=== PATIENT | female | born 1940 | race Caucasian/White ===

== ENCOUNTER 2020-11-20 18:53 | Inpatient (IN) | payer MEDICARE, MEDICAID, SELFPAY ==
[2020-11-20 19:00] VITALS: BMI 29.7
[2020-11-20 19:20] VITALS: BP 142/53; PULSE 83; RESP 24; TEMP 37.2; O2SAT 98
--- NOTE | 2020-11-20 19:44 | ECG_ITS ---
[facility] ED Test Date: 2020-11-20 Pat Name: Beryl Tanner Department: Room: Gender: Female Religion Teacher: : 1940 Requested By: Julio Joyce Order Number: [id number] Reading MD: Michelle Hopson M.D. Measurements Intervals [place] Rate: 75 P: 91 GA: 204 QRS: -54 QRSD: 144 T: 123 QT: 461 QTc: 518 Interpretive Statements SINUS RHYTHM WITH SINUS ARRHYTHMIA MARKED LEFT AXIS DEVIATION [QRS AXIS < -30] LEFT BUNDLE BRANCH BLOCK [120+ ms QRS DURATION, 80+ ms Q/S IN V1/V2, 85+ ms R IN I/aVL/V5/V6] No previous ECG available for comparison Electronically Signed On 11-26-2020 0:32:04 CDT by Michelle Hopson M.D. [id number]
--- NOTE | 2020-11-20 19:44 | XRR_ITS ---
PROCEDURE INFORMATION: Exam: XR Chest Exam date and time: 11/20/2020 7:44 PM Age: 79 years old Clinical indication: Pain; Left-sided; Prior surgery; Surgery type: Open heart, masectomy; Additional info: Cp TECHNIQUE: Imaging protocol: XR of the chest. Views: 1 view. COMPARISON: CR Chest 2 views* [id number] 07/18/2014 1:26 PM FINDINGS: Lungs: Bibasilar atelectasis versus minimal infiltrate. Pleural spaces: Unremarkable. No pleural effusion. No pneumothorax. Heart/Mediastinum: Cardiomegaly. Bones/joints: Sternotomy wires. XR/XR chest 1V portable [id number] IMPRESSION: 1. Cardiomegaly. 2. Bibasilar atelectasis versus minimal infiltrate.
--- NOTE | 2020-11-20 20:06 | ED_ITS ---
HPI - Chest Pain General: Chief Complaint: Chest Pain Stated Complaint: CHEST PAIN Time Seen by Provider: 11/20/20 19:53 History of Present Illness: HPI narrative: The patient is a 79-year-old female with past medical history coronary artery disease with multiple stents and CABG, CHF, diabetes, COPD, left breast cancer with mastectomy. She gets her care in [place] and in [place] with consultants. She has not been here before. She comes to the ER complaining that she was at [facility] and started having left-sided chest pain that was a 10 out of 10. EMS was called and arrived and gave her 3 nitroglycerin and 324 aspirin. She says her pain on ar rival is greatly reduced and a 0-1. 5 minutes later she says it has resolved. She also has a history of bilateral lower extremity amputation she says one was from peripheral arterial disease and the other was from diabetes. MD complaint: chest pain Pertinent past history: coronary artery disease, [employer] and CABG Onset (ago): hour(s) (1) Timing of current episode: constant Prior episodes: Yes Onset: during rest Pain location: left chest Pain radiation: none Severity: moderate Relieving factors: nitroglycerin Exacerbating factors: nothing Associated symptoms: Reports no associated symptoms; Deny abdominal pain, dyspnea or palpitations Review of Systems General: Reports: 10 or more systems reviewed and unremarkable except in HPI and below Const: Denies: fatigue Eyes: Denies: change in vision, blurry vision or eye redness ENMT: Denies: throat pain, swelling of lips/tongue, ear or mastoid pain or nasal congestion Card: Reports: chest pain; Denies: palpitations, irregular heart rhythm, edema, dyspnea on exertion or orthopnea Resp: Denies: dyspnea, productive cough or non-productive cough GI: Denies: abdominal pain, diarrhea or GI cramping : Denies: flank pain, difficulty voiding, urinary frequency or urinary urgency Musc: Denies: neck pain, back pain, extremity pain, joint pain, joint redness, limited range of motion or muscle weakness Skin/Breast: Denies: rash, pruritus, erythema, skin pain or skin tenderness Neuro: Denies: headache(s), numbness in extremities, weakness in extremities, sensory changes, difficulty walking, dizziness, confusion or Slurred speech present Psych: Denies: anxiety or depression Endo: Denies: polyuria All/Imm: Denies: urticaria, throat swelling or tongue swelling Physical Exam Const: COMMON NORMALS: no acute distress, average body habitus, patient oriented x3, no limitations, healthy appearing, alert and well nourished GENERAL APPEARANCE: cooperative, comfortable, well kempt and well developed ORIENTATION/CONSCIOUSNESS: Yes awake, Yes oriented to person, Yes oriented to place and Yes oriented to time HENMT: COMMON NORMALS: normocephalic, external ears normal and Normal external nose present HEAD & SCALP: normal to inspection and normocephalic NOSE: Normal external nose present EXTERNAL EAR: Yes external ears normal MOUTH: Normal oral and palatal mucosa present THROAT: posterior oropharynx normal Eye: COMMON NORMALS: Equal, round and reactive pupils present and EOMs intact bilaterally GENERAL EYE: appearance normal, both eyes and all related structures PUPIL: Yes Equal, round and reactive pupils present Neck/C-Spine: COMMON NORMALS: full ROM, no lymphadenopathy, no meningeal signs and no JVD GENERAL: Yes normal visual inspection Lymph: LYMPHATIC: no lymphadenopathy noted Chest: COMMONS NORMALS: normal inspection of the chest and normal palpation of entire chest wall Resp: COMMON NORMALS: normal respiratory effort, No retractions, No use of accessory muscles, clear to auscultation bilaterally and percussion normal EFFORT & INSPECTION: Yes able to speak in complete sentences AUSCULTATION: clear to auscultation bilaterally PERCUSSION: percussion normal Cardio: COMMON NORMALS: no JVD, regular rate, regular rhythm, S1 normal heart sound present, S2 normal heart sound present and Peripheral pulses 2+ throughout RATE: regular rate RHYTHM: regular rhythm HEART SOUNDS: S1 normal heart sound present and S2 normal heart sound present PERIPHERAL PULSES: Peripheral pulses 2+ throughout GI: COMMON NORMALS: Normal to inspection, nondistended, normoactive bowel sounds present, Soft to palpation, non-tender and no masses INSPECTION: Yes normal to inspection PALPATION: Yes Soft to palpation : COMMON NORMALS: Yes no CVA tenderness BLADDER/KIDNEY EXAM: Yes no CVA tenderness Back/Pelvis: COMMON NORMALS: no CVA tenderness, thoracic and lumbar spine normal to inspection, no thoracic nor lumbar tenderness and thoraco-lumbar ROM normal Extremity: COMMON NORMALS: normal to inspection, full ROM, capillary refill normal, no joint enlargement and no pedal edema NARRATIVE EXTREMITY EXAM: Bilateral lower extremity amputations right side above the knee. Left side below the knee. They appear normal. GENERAL: Yes normal exam except as noted Neuro: COMMON NORMALS: patient oriented x3, CN's II-XII intact bilaterally, moves all extremities, no focal motor deficits, no sensory deficits noted and gait normal SENSORIUM/ORIENTATION: Yes alert, Yes oriented to person, Yes oriented to place and Yes oriented to time MENINGEAL SIGNS: Yes no meningeal signs Psych: COMMON NORMALS: mental status grossly normal, Normal thought process present, cooperative, normal affect and speech normal APPEARANCE: Yes well kempt ATTITUDE: Yes calm SPEECH: Yes normal speech THOUGHT PROCESS: Normal thought process present Skin: COMMON NORMALS: no rashes or lesions noted GENERAL SKIN EXAM: no rashes or lesions noted Course Vital Signs: Vital signs: Vital Signs Temperature 98.1 F 11/20/20 20:20 Pulse Rate 72 11/21/20 00:12 Respiratory Rate 16 11/21/20 00:12 Blood Pressure 154/66 11/21/20 00:12 Pulse Oximetry 99 11/21/20 00:12 MDM - Chest Pain MDM Narrative: Medical decision making narrative: The patient came to the ER complaining of left-sided chest pain. EMS gave her 3 nitroglycerin and aspirin 324. Initial troponin was 49.7. 2-hour troponin was 96.7. Likely non-STEMI. Discussed with Dr. Stephen who will consult on this patient. He recommended heparin bolus and drip and Plavix 300. The patient is admitted and Dr. Dalton accepts admission. Lab Data: Labs: Lab Results 11/20/20 11/20/20 11/20/20 Range/Units 19:53 19:53 19:53 WBC 6.5 (4.0-10.0) 10^3/ uL RBC 3.18 L (4.1-5.3) 10^6/u L Hgb 9.5 L (11.5-15.3) g/dL Hct 31.5 L (37.0-47.0) % MCV 99.1 H (81-99) fL MCH 29.9 (28.0-34.0) pg MCHC 30.2 (30.0-36.0) g/dL RDW 14.7 (12.1-15.1) % Plt Count 237 (130-400) 10^3/c mm MPV 9.7 (7.4-10.4) fL Neut % (Auto) 82.4 % Lymph % (Auto) 7.4 % [place] % (Auto) 6.3 % Eos % (Auto) 3.1 % Baso % (Auto) 0.5 % Neut # (Auto) 5.32 (1.8-7.7) 10^3/u L Lymph # (Auto) 0.5 L (0.8-4.8) 10^3/u L [place] # (Auto) 0.4 (0.2-0.9) 10^3/u L Eos # (Auto) 0.2 (0.0-0.8) 10^3/u L Baso # (Auto) 0.0 (0.0-0.1) 10^3/u L Nucleated RBC % (a uto) 0 % Nucleated RBCs # 0.0 /100WBC Sodium 135 L (136-145) mmol/L Potassium 4.7 (3.5-5.1) mmol/L Chloride 101 (98-107) mmol/L Carbon Dioxide 21 L (22-29) mmol/L Anion Gap 17.7 (5-19) BUN 41 H (8-23) mg/dL Creatinine 1.7 H (0.5-0.9) mg/dL GFR Calculation Not Reportable Glucose 474 H (65-115) mg/dL Calculated Osmolal ity 311 H (285-295) mOsm/k g Calcium 8.3 L (8.5-10.5) mg/dL Total Bilirubin 0.2 (0.15-1.2) mg/dL AST 13 (0-32) U/L ALT 12 (0-33) U/L Alkaline Phosphata se 147 H (35-105) IU/L Troponin T Baselin e 47 H (0-10) ng/L Troponin T 120 Min [place] (0-10) ng/L Delta Troponin T (0-10) ABS# NT-Pro-B Natriuret Pep 2507 H (0-450) pg/mL Total Protein 5.9 L (6.6-8.7) g/dL Albumin 3.5 (3.5-5.2) g/dL Globulin 2.4 (1.3-4.6) g/dL 11/20/20 Range/Units 22:13 WBC (4.0-10.0) 10^3/ uL RBC (4.1-5.3) 10^6/u L Hgb (11.5-15.3) g/dL Hct (37.0-47.0) % MCV (81-99) fL MCH (28.0-34.0) pg MCHC (30.0-36.0) g/dL RDW (12.1-15.1) % Plt Count (130-400) 10^3/c mm MPV (7.4-10.4) fL Neut % (Auto) % Lymph % (Auto) % [place] % (Auto) % Eos % (Auto) % Baso % (Auto) % Neut # (Auto) (1.8-7.7) 10^3/u L Lymph # (Auto) (0.8-4.8) 10^3/u L [place] # (Auto) (0.2-0.9) 10^3/u L Eos # (Auto) (0.0-0.8) 10^3/u L Baso # (Auto) (0.0-0.1) 10^3/u L Nucleated RBC % (a uto) % Nucleated RBCs # /100WBC Sodium (136-145) mmol/L Potassium (3.5-5.1) mmol/L Chloride (98-107) mmol/L Carbon Dioxide (22-29) mmol/L Anion Gap (5-19) BUN (8-23) mg/dL Creatinine (0.5-0.9) mg/dL GFR Calculation Glucose (65-115) mg/dL Calculated Osmolal ity (285-295) mOsm/k g Calcium (8.5-10.5) mg/dL Total Bilirubin (0.15-1.2) mg/dL AST (0-32) U/L ALT (0-33) U/L Alkaline Phosphata se (35-105) IU/L Troponin T Baselin e (0-10) ng/L Troponin T 120 Min [place] 96.70 H (0-10) ng/L Delta Troponin T 49.70 H* (0-10) ABS# NT-Pro-B Natriuret Pep (0-450) pg/mL Total Protein (6.6-8.7) g/dL Albumin (3.5-5.2) g/dL Globulin (1.3-4.6) g/dL Discharge Plan Discharge Patient Disposition: Admitted As Inpatient Clinical Impression: Non-ST elevation TN (NSTEMI) Condition: Stable Coding Level of Care Code ED Guidance Counselor for Pily Steward
[2020-11-20 20:08] LABS: Basophils % 0.5 %; Eosinophils # 0.2 10^3/uL (0.0-0.8); Eosinophils % 3.1 %; Hematocrit 31.5 % (37.0-47.0); Hemoglobin 9.5 g/dL (11.5-15.3); Lymphocytes # 0.5 10^3/uL (0.8-4.8); Lymphocytes % 7.4 %; Mean Corpuscular HGB Conc 30.2 g/dL (30.0-36.0); Mean Corpuscular Hemoglobin 29.9 pg (28.0-34.0); Mean Corpuscular Volume 99.1 fL (81-99); Mean Platelet Volume 9.7 fL (7.4-10.4); Monocytes # 0.4 10^3/uL (0.2-0.9); Monocytes % 6.3 %; Neutrophils # 5.32 10^3/uL (1.8-7.7); Neutrophils % 82.4 %; Nucleated Red Blood Cells % 0 %; Platelet Count 237 10^3/cmm (130-400); Red Blood Count 3.18 10^6/uL (4.1-5.3); Red Cell Distribution Width 14.7 % (12.1-15.1); White Blood Count 6.5 10^3/uL (4.0-10.0)
[2020-11-20 20:20] VITALS: BP 120/42; PULSE 72; RESP 21; TEMP 36.7; O2SAT 96
[2020-11-20 20:27] LABS: Troponin(5th) Baseline 47 ng/L (0-10)
[2020-11-20 20:37] LABS: Alanine Aminotransferase 12 U/L (0-33); Albumin Level 3.5 g/dL (3.5-5.2); Alkaline Phosphatase 147 IU/L (35-105); Anion Gap 17.7 (5-19); Aspartate Amino Transferase 13 U/L (0-32); Blood Urea Nitrogen 41 mg/dL (8-23); Calcium 8.3 mg/dL (8.5-10.5); Carbon Dioxide 21 mmol/L (22-29); Chloride 101 mmol/L (98-107); Globulin 2.4 g/dL (1.3-4.6); Glucose 474 mg/dL (65-115); NT Pro B Type Natriuretic Pept 2507 pg/mL (0-450); Osmolality Calculated 311 mOsm/kg (285-295); Potassium 4.7 mmol/L (3.5-5.1); Sodium 135 mmol/L (136-145); Total Bilirubin 0.2 mg/dL (0.15-1.2); Total Protein 5.9 g/dL (6.6-8.7)
--- NOTE | 2020-11-20 21:44 | ECG_ITS ---
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 Measurements Intervals [place] Rate: 84 P: 33 OK: 184 QRS: -63 QRSD: 149 T: 104 QT: 467 QTc: 554 Interpretive Statements SINUS RHYTHM WITH SINUS ARRHYTHMIA MARKED LEFT AXIS DEVIATION [QRS AXIS < -30] INTRAVENTRICULAR CONDUCTION DELAY [130+ ms QRS DURATION] No previous ECG available for comparison Electronically Signed On 11-21-2020 0:51:58 CDT by Keegan Mc M.D. [id number]
[2020-11-21] VITALS (10 sets, daily range): BP systolic 115–169; BP diastolic 30–68; PULSE 59–75; RESP 16–19; TEMP 36.6; O2SAT 96–100
[2020-11-21] MEDS: clopidogrel 300 mg Tablet PO (01:12)
[2020-11-21] MEDS: heparin 5,000 unit/mL INJ 1 mL IV ×2 (01:14→17:15)
[2020-11-21] MEDS: heparin drip 25,000 UNIT/500 ML PREMIX 43.09 UNIT IV (01:24)
--- NOTE | 2020-11-21 01:44 | ECG_ITS ---
[facility] ED Test Date: 2020-11-21 Pat Name: Beryl Tanner Department: Room: Gender: Female Chief Clerk: : 1940 Requested By: Julio Joyce Order Number: [id number] Kari MD: Michelle Hopson M.D. Measurements Intervals [place] Rate: 64 P: 57 ME: 250 QRS: -57 QRSD: 146 T: 143 QT: 475 QTc: 491 Interpretive Statements SINUS RHYTHM WITH FIRST DEGREE AV BLOCK MARKED LEFT AXIS DEVIATION [QRS AXIS < -30] LEFT BUNDLE BRANCH BLOCK [120+ ms QRS DURATION, 80+ ms Q/S IN V1/V2, 85+ ms R IN I/aVL/V5/V6] Compared to ECG 11/20/2020 19:59:10 First degree AV block now present Sinus arrhythmia no longer present Electronically Signed On 11-26-2020 0:41:58 CDT by Michelle Hopson M.D. [id number]
--- NOTE | 2020-11-21 01:55 | PM.HP ---
Providers/Chief Complaint Primary Care Provider: Karl Sweet Chief Complaint: CHEST PAIN History of Present Illness Beryl Tanner is a 79 year old female with a past medical history of hypertension, diabetes, CAD, status post CABG 2004 followed by stenting few years later presented to the emergency room today with c/o mid sternal chest pain thats tarted this afternoon at 2:30pm. associated with diaphoresis, nausea. Symptoms relived with administration of s/l nitro. elevated baseline and 2 hr troponin with significant delta of 49. EKG without acute ST-T wave changes. Recently vaccinated with J&J vaccine on 11/14/20. No dyspnea, ough, palpitations Review of Systems General: Reports: 10 or more systems reviewed and unremarkable except in HPI and below Const: Denies: fever(s), chills or body aches Eyes: Denies: change in vision, blurry vision or photophobia ENMT: Reports: hoarseness; Denies: throat pain, enlarged tonsils, odynophagia or nasal congestion Card: Denies: chest pain, palpitations, irregular heart rhythm, edema, swelling of feet/ankles, lightheadedness, pre-syncope, dyspnea on exertion or orthopnea Resp: Denies: dyspnea, productive cough, non-productive cough, wheezing, stridor, pain on inspiration, change in phlegm color, hemoptysis or chest congestion GI: Denies: abdominal pain, nausea, vomiting, hematemesis, coffee ground emesis, dysphagia, heartburn, diarrhea, constipation, GI cramping, change in stool character, hematochezia or melena : Denies: flank pain, difficulty voiding, dysuria, urinary frequency, urinary urgency, urinary hesitancy or hematuria Musc: Denies: neck pain, back pain, extremity pain, joint swelling, joint warmth or deformity Neuro: Denies: headache(s), numbness in extremities, weakness in extremities, sensory changes, difficulty walking, frequent falls, dizziness, vertigo, behavioral changes, Slurred speech present or seizure-like activity Psych: Denies: anxiety, depression, suicidal ideation or homicidal ideation Endo: Denies: polyuria, polydipsia, tired all the time, cold intolerance or hot flashes Mason/Lymph: Denies: easy bruising or easy bleeding Medications/Allergies Home Medications Medication Instructions Recorded Confirmed Last Taken Type ferrous sulfate [FeroSul] 325 mg PO BID 11/20/20 11/20/20 11/20/20 History furosemide 40 mg PO BID 11/20/20 11/20/20 11/20/20 History hydrocodone-acetaminophen 1 tab PO Q6H PRN 11/20/20 11/20/20 Unknown History insulin glargine [Lantus Solostar 30 unit SUBCUT DAILY 11/20/20 11/20/20 11/19/20 History U-100 Insulin] nitroglycerin 0.4 mg SUBLINGUAL Q5M PRN MDD 3 11/20/20 11/20/20 11/20/20 History omeprazole 20 mg PO DAILY 11/20/20 11/20/20 11/20/20 History potassium chloride 20 meq PO BID 11/20/20 11/20/20 11/20/20 History rosuvastatin 20 mg PO BEDTIME 11/20/20 11/20/20 11/19/20 History ticagrelor [Brilinta] 90 mg PO Q12H 11/20/20 11/20/20 11/20/20 History tramadol 50 mg PO Q6H PRN 11/20/20 11/20/20 11/19/20 History Allergies Allergy/AdvReac Type Severity Reaction Status Date / Time No Known Allergies Allergy Unverified 11/20/20 20:47 PFSH Acute PFSH: Medical History (Updated 11/21/20 @ 02:00 by Lorrie Dalton MD) Amputation leg, bilat CAD (coronary artery disease) Diabetes mellitus Hypertension Surgical History Hx of CABG Vitals/I&O/Wt Last Vital Signs Temp 98.1 F 11/20/20 20:20 Pulse 72 11/21/20 00:12 Resp 16 11/21/20 00:12 BP 154/66 11/21/20 00:12 Pulse Ox 99 11/21/20 00:12 Weight last 48 hrs Weight 86.183 kg Physical Exam Narrative: EXAM NARRATIVE: General: No acute distress, AO x3 HEENT: PERRLA, pupils bilaterally equal and reactive, pallors not present Chest: Normal vesicular breath sounds, no added sounds, equal good air entry bilaterally CVS: S1-S2 regular, no murmurs, no tachycardia, no gallops, no rubs Abdomen: Soft, nontender, no organomegaly, bowel sounds present Neuro: No focal deficits, no facial deformity, AO x3, power 5/5 in all limbs Extremities: B/L LE amputation Data : 11/20/20 19:53 11/20/20 19:53 A&P Assessment and plan (1) Non-ST elevation VA (NSTEMI): Received ASA 325 and Plavix 300mg in ER , as has heparin infusion Continue same for now NPO post midnight for possible cath in am continue ASA 81, will discuss with cardiology regarding Brilinta prior to cath 2D echo cardiology consult with Dr. Stephen in am Usually follows with Dr. Mcgrath at [facility] Status: Acute Additional A&P Information Cr at 1.7, unknown past baseline, patient does not know her baseline number, no recent changes in urin eoutput IVF NS @ 50cc/hr overnight, gentle hydration given h/o CHF, hold home dose of Lasix for now HTN: currently well controlled DM: insulin sliding scale for now, resume lantus once no longer NPO DVT ppx: on heparin drip Full code Attestations Medical Necessity Statement*: anticipate >2midnight admission for NSTEMI, cardiology assessment, possible cath Coding Level of Care Code Acute Jukebox Coin Collector for Pily Steward Diagnoses Non-ST elevation VA (NSTEMI) I21.4
--- NOTE | 2020-11-21 04:42 | USCV_ITS ---
Beryl Tanner Age: 79 Gender: F : 1940 Exam Date: 11/21/2020 06:14 Ordering Phys: Lorrie Dalton MD Technologist: Ingrid Guallpa Exam Location: [facility] [place] Indication: NSTEMI BP: 154 / 66 HR: 69 Rhythm: Sinus Technical Quality: Adequate MEASUREMENTS (Male / Female) Normal Values 2D ECHO LV Diastolic Diameter PLAX 4.2 cm 4.2 - 5.9 / 3.9 - 5.3 cm LV Systolic Diameter PLAX 3.6 cm IVS Diastolic Thickness 1.5 cm 0.6 - 1.0 / 0.6 - 0.9 cm IVS Systolic Thickness 1.9 cm LVPW Diastolic Thickness 2.2 cm 0.6 - 1.0 / 0.6 - 0.9 cm LVPW Systolic Thickness 2.0 cm RV Chamber Size 2.6 cm LVOT Diameter 2.0 cm LV Ejection Fraction 2D Teich 32.5 % LV Ejection Fraction MOD 2C 10.2 % LV Ejection Fraction 2C AL 14.5 % LA Diameter 4.5 cm LA Width 4.0 cm LA Height 5.3 cm RA Width 4.1 cm RA Height 4.4 cm Aorta at Sinotubular Diameter 3.0 cm M-MODE Aortic Annulus Diameter 3.0 cm LA Ao Ratio MM 1.5 DOPPLER AV Peak Velocity 116.0 cm/s LVOT Peak Velocity 62.0 cm/s AV Area Cont Eq vti 1.8 cm squared AV Area Cont Eq pk 1.7 cm squared MV Area PHT 5.0 cm squared Mitral E to A Ratio 0.9 MV E' Velocity 52.5 cm/s Mitral E to MV E' Ratio 21.2 Mitral E to LV E' Lateral Ratio 21.2 Mitral E to LV E' Septal Ratio 21.7 TR Peak Velocity 191.3 cm/s TR Peak Gradient 14.6 mmHg TV Peak E Velocity 55.0 cm/s Right Atrial Pressure 8.0 mmHg Pulmonary Artery Systolic Pressu 22.6 mmHg PV Peak Velocity 62.0 cm/s RV Acceleration Time 0.1 s RV Ejection Time 0.3 s RV AcT/ET 0.4 FINDINGS Left Ventricle Normal left ventricular cavity size. Normal left ventricular systolic function. Left ventricular ejection fraction is estimated at 55 %. No regional wall motion abnormalities. Grade II/IV diastolic dysfunction, moderately elevated filling pressures. Right Ventricle The right ventricle is normal in size and function. RVSP could not be calculated due to incomplete tricuspid regurgitation velocity profile. Right Atrium The right atrium is normal in size. Left Atrium Moderately increased left atrial size. Mitral Valve Moderately thickened mitral valve. Severe mitral annular calcification. No mitral valve stenosis. Moderate mitral valve regurgitation. Aortic Valve Severe aortic valve calcification. Mild aortic valve stenosis, mean gradient 2.7 mmHg, LUZ MARIA 1.8 cm squared. No aortic valve regurgitation. Tricuspid Valve Structurally normal tricuspid valve without significant stenosis or regurgitation. Pulmonary artery systolic pressure is normal. Pulmonic Valve Structurally normal pulmonic valve without significant stenosis. There is no pulmonic regurgitation. Pericardium Normal pericardium without effusion. Aorta Normal ascending aorta dimension. CONCLUSIONS 1-Normal left ventricular cavity size. Normal left ventricular systolic function. Left ventricular ejection fraction is estimated at 55 %. No regional wall motion abnormalities. Grade II/IV diastolic dysfunction, moderately elevated filling pressures. 2-Moderately increased left atrial size. 3-Moderately thickened mitral valve. Severe mitral annular calcification. No mitral valve stenosis. Moderate mitral valve regurgitation. 4-Severe aortic valve calcification. Mild aortic valve stenosis, mean gradient 2.7 mmHg, LUZ MARIA 1.8 cm squared. No aortic valve regurgitation. 5-Structurally normal tricuspid valve without significant stenosis or regurgitation. Pulmonary artery systolic pressure is normal. 6-There is no pericardial effusion. 7-Right atrial pressure is around 5 mm of mercury. 8-There are no prior echocardiogram studies to compare. Michael Stephen MD (Electronically Signed) Final Date: 21 November 2020 19:21 S
[2020-11-21 05:23] LABS: Add Urine Culture? Yes; Add Urine Microscopic? YES; Bacteria Urine TRACE /hpf; Bilirubin Urine Neg (Negative); Blood Urine 3+ (Negative); Glucose Urine UA 4+ (Normal); Ketones Urine Negative (Negative); Leukocyte Esterase Urine Negative (Negative); Nitrate Urine Negative (Negative); Protein Urine Trace (Negative); RBC Urine 0-4 /hpf (0-2); Squamous Epithelial Cell Urine 0-4 /hpf (0-5); Urine Appearance SL Hazy (CLEAR); Urine Color Yellow (Yellow); Urobilinogen Urine Norm (Negative); pH Urine 5 (5-7)
--- NOTE | 2020-11-21 08:05 | PC.NURSE ---
spoke with pt's daughter and updated her on pt's care plan thus far. pt's daughter would like to be updated by pt's physicians.
[2020-11-21] MEDS: TRAMadol 50 mg Tablet PO (09:05)
[2020-11-21] MEDS: atorvastatin 40 mg Tablet PO (09:06)
[2020-11-21] MEDS: aspirin 81 mg EC Tablet PO (09:06)
[2020-11-21] MEDS: pantoprazole DR 40 mg Tablet PO (09:06)
[2020-11-21] MEDS: sodium chloride 0.9% 1,000 ML 50 ML IV (09:07)
[2020-11-21 09:29] LABS: Troponin 5 6HR 169.4 ng/L (0-10)
[2020-11-21 09:54] LABS: SARS Covid-2 Antigen Negative (Negative)
--- NOTE | 2020-11-21 10:00 | P.HP_ITS ---
Providers/Chief Complaint Admitting Physician: Lorrie Dalton MD Primary Care Provider: Karl Sweet Chief Complaint: CHEST PAIN History of Present Illness Beryl Tanner is a 79 year old female past medical history significant for coronary artery disease status post CABG in 2004 followed by multiple stents no record available to me, history of bilateral flumw-dzd-ibox amputation, chronic kidney disease baseline creatinine not sure of the baseline creatinine, vascular pathology, congestive heart failure, diabetes mellitus presented with chest pain of 2-hour duration. She was ruled in for acute coronary syndrome. Currently chest pain has improved and not there anymore, she has been admitted through hospitalist service. We have been asked to assist in her care. I have detailed discussion with the patient she appeared to be stable from a cardiovascular perspective. Troponin is recorded 167. Since patient has abnormal creatinine and I do not know what is her baseline at this point I may will like to treat her medically as she is high risk for contrast-induced nephropathy until unless I have an evidencet that she is unstable requiring angiogram. I tried calling her daughter but somehow I have the wrong number, We will try to communicate with her as well however I have detailed discussion with the patient and she is in agreement and against invasive strategy. Review of Systems General: Reports: 10 or more systems reviewed and unremarkable except in HPI and below Const: Denies: fever(s), chills, body aches or fatigue Eyes: Denies: change in vision, blurry vision, photophobia or eye redness ENMT: Reports: hoarseness; Denies: throat pain, enlarged tonsils, odynophagia, swelling of lips/tongue, ear or mastoid pain or nasal congestion Card: Denies: chest pain, palpitations, irregular heart rhythm, edema, swelling of feet/ankles, lightheadedness, pre-syncope, dyspnea on exertion or orthopnea Resp: Denies: dyspnea, productive cough, non-productive cough, wheezing, stridor, pain on inspiration, change in phlegm color, hemoptysis or chest conges tion GI: Denies: abdominal pain, nausea, vomiting, hematemesis, coffee ground emesis, dysphagia, heartburn, diarrhea, constipation, GI cramping, change in stool character, hematochezia or melena : Denies: flank pain, difficulty voiding, dysuria, urinary frequency, urinary urgency, urinary hesitancy or hematuria Musc: Denies: neck pain, back pain, extremity pain, joint pain, joint swelling, joint redness, joint warmth, limited range of motion, muscle weakness or deformity Skin/Breast: Denies: rash, pruritus, erythema, skin pain or skin tenderness Neuro: Denies: headache(s), numbness in extremities, weakness in extremities, sensory changes, difficulty walking, frequent falls, dizziness, vertigo, confusion, behavioral changes, Slurred speech present or seizure-like activity Psych: Denies: anxiety, depression, suicidal ideation or homicidal ideation Endo: Denies: polyuria, polydipsia, tired all the time, cold intolerance or hot flashes Mason/Lymph: Denies: easy bruising or easy bleeding All/Imm: Denies: urticaria, throat swelling or tongue swelling Medications/Allergies Home Medications Medication Instructions Recorded Confirmed Last Taken Type ferrous sulfate [FeroSul] 325 mg PO BID 11/20/20 11/20/20 11/20/20 History furosemide 40 mg PO BID 11/20/20 11/20/20 11/20/20 History hydrocodone-acetaminophen 1 tab PO Q6H PRN 11/20/20 11/20/20 Unknown History insulin glargine [Lantus Solostar 30 unit SUBCUT DAILY 11/20/20 11/20/20 11/19/20 History U-100 Insulin] nitroglycerin 0.4 mg SUBLINGUAL Q5M PRN MDD 3 11/20/20 11/20/20 11/20/20 History omeprazole 20 mg PO DAILY 11/20/20 11/20/20 11/20/20 History potassium chloride 20 meq PO BID 11/20/20 11/20/20 11/20/20 History rosuvastatin 20 mg PO BEDTIME 11/20/20 11/20/20 11/19/20 History ticagrelor [Brilinta] 90 mg PO Q12H 11/20/20 11/20/20 11/20/20 History tramadol 50 mg PO Q6H PRN 11/20/20 11/20/20 11/19/20 History Allergies Allergy/AdvReac Type Severity Reaction Status Date / Time No Known Allergies Allergy Unverified 11/20/20 20:47 PFSH Acute PFSH: Medical History (Updated 11/21/20 @ 14:57 by Michael Stephen MD) Amputation leg, bilat CAD (coronary artery disease) Chronic kidney disease Diabetes mellitus Hypertension Surgical History Hx of CABG Vitals/I&O/Wt Last Vital Signs Temp 98.1 F 11/20/20 20:20 Pulse 64 11/21/20 09:16 Resp 18 11/21/20 09:16 BP 115/39 11/21/20 09:16 Pulse Ox 99 11/21/20 09:16 Weight last 48 hrs Weight 190 lb Physical Exam Narrative: EXAM NARRATIVE: GENERAL: Patient is alert, awake and oriented x3. Not in distress NECK: No jugular vein distension. HEENT: No cyanosis. No icterus. No pallor. HEART: Regular S1 and S2. No murmur, rub or gallop. LUNGS: Clear to auscultate bilaterally. CENTRAL NERVOUS SYSTEM: Grossly nonfocal. EXTREMITIES: Lower extremities liois-fst-oxpd amputation no edema Data : 11/20/20 19:53 11/20/20 19:53 Micro: SINUS RHYTHM WITH FIRST DEGREE AV BLOCK MARKED LEFT AXIS DEVIATION [QRS AXIS < -30] LEFT BUNDLE BRANCH BLOCK [120+ ms QRS DURATION, 80+ ms Q/S IN V1/V2, 85+ ms R IN I/aVL/V5/V6] Compared to ECG 11/20/2020 19:59:10 First degree AV block now present Sinus arrhythmia no longer present A&P Assessment and plan (1) Non-ST elevation ND (NSTEMI): Will admit patient to CSU. Continue aspirin statin beta-otilia add nitroglycerin long-acting in the form of isosorbide mononitrate continue ticagrelor. I will obtain echocardiogram to assess LV function and wall motion abnormality. Status: Acute (2) Hypertension: Will optimize medicine to control blood pressure Status: Acute Qualifiers: Hypertension type: essential hypertension Qualified Code(s): I10 - Essential (primary) hypertension (3) Diabetes mellitus: Blood sugars are high will add moderate sliding scale insulin. 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 Obtain prior medical record Status: Acute Qualifiers: Chronic kidney disease stage 3 subtype: stage 3b (GFR 30-44) Chronic kidney disease stage: stage 3 (moderate) Qualified Code(s): N18.32 - Chronic kidney disease, stage 3b Attestations Medical Necessity Statement*: I am expecting his stay to cross more than 2 midnights Coding Level of Care Code New Pt Acute Radio Communications Mechanician for g Fwd Patient Type New History Comprehensive Exam Comprehensive Medical Decision Making High Complexity Diagnoses Non-ST elevation ND (NSTEMI) I21.4 Hypertension I10 Hypertension type: essential hypertension Diabetes mellitus E13.59; Z79.4 Diabetes mellitus type: other specified (including SALAZAR) Diabetes mellitus intermediate insulin use: with long wall mining machine tender use Diabetes mellitus complication status: with circulatory complication Diabetes mellitus complication detail: with other circulatory complications Chronic kidney disease N18.32 Chronic kidney disease stage 3 subtype: stage 3b (GFR 30-44) Chronic kidney disease stage: stage 3 (moderate)
[2020-11-21 10:07] LABS: Glucose Point of Care 179 mg/dL (70-110)
[2020-11-21 10:59] LABS: Partial Thromboplastin Time 224.8 SECONDS (23.9-36.7)
[2020-11-21 12:53] LABS: Glucose Point of Care 181 mg/dL (70-110)
[2020-11-21 16:11] LABS: Partial Thromboplastin Time 35.7 SECONDS (23.9-36.7)
[2020-11-21] MEDS: heparin drip 25,000 UNIT/500 ML PREMIX 47 UNIT IV (17:15)
[2020-11-21] MEDS: isosorbide mononitrate 20 mg Tablet PO (19:39)
[2020-11-21] MEDS: ticagrelor 90 mg Tablet PO (19:40)
--- NOTE | 2020-11-21 20:03 | PC.NURSE ---
received pt with heparin gtt infusing at 29 ml/hr, titrated gtt in MAR to reflect current rate of 29 ml/hr
[2020-11-21 20:51] LABS: Glucose Point of Care 148 mg/dL (70-110)
[2020-11-21 23:04] LABS: Partial Thromboplastin Time > 250.0 SECONDS (23.9-36.7)
[2020-11-22] VITALS (9 sets, daily range): BP systolic 120–171; BP diastolic 33–62; PULSE 64–76; RESP 15–18; TEMP 36.3–36.9; O2SAT 95–99
[2020-11-22] MEDS: TRAMadol 50 mg Tablet PO ×2 (00:06→17:55)
[2020-11-22] MEDS: sodium chloride 0.9% 1,000 ML 100 ML IV ×2 (00:06→10:31)
[2020-11-22 05:01] LABS: Platelet Count 217 10^3/cmm (130-400)
[2020-11-22] MEDS: heparin drip 25,000 UNIT/500 ML PREMIX 22 UNIT IV (05:15)
[2020-11-22 07:00] LABS: Glucose Point of Care 216 mg/dL (70-110)
[2020-11-22] MEDS: pantoprazole DR 40 mg Tablet PO (08:03)
[2020-11-22] MEDS: aspirin 81 mg EC Tablet PO (08:03)
[2020-11-22] MEDS: ticagrelor 90 mg Tablet PO ×2 (08:03→17:24)
[2020-11-22] MEDS: isosorbide mononitrate 20 mg Tablet PO ×2 (08:03→17:23)
[2020-11-22] MEDS: atorvastatin 40 mg Tablet PO (08:03)
[2020-11-22 09:31] LABS: Anion Gap 12.3 (5-19); Blood Urea Nitrogen 31 mg/dL (8-23); Calcium 7.9 mg/dL (8.5-10.5); Carbon Dioxide 23 mmol/L (22-29); Chloride 107 mmol/L (98-107); Glucose 227 mg/dL (65-115); Osmolality Calculated 300 mOsm/kg (285-295); Potassium 4.3 mmol/L (3.5-5.1); Sodium 138 mmol/L (136-145)
--- NOTE | 2020-11-22 10:04 | PC.NURSE ---
ptt 171.dr almendarez notified.received order to stop heparin for 2 hrs.resume at 17mls/hr
--- NOTE | 2020-11-22 10:20 | PC.NURSE ---
Stool was black, informed nurse
[2020-11-22 11:06] LABS: Glucose Point of Care 233 mg/dL (70-110)
--- NOTE | 2020-11-22 11:20 | PC.CHAP ---
Pastoral Care Encounter/Spiritual Assessment Type of Contact [] Declined market basket maker visit [] Patient/Family/Request visit [] Outpatient visit [] Follow-up visit [] Physician referral [] Code/Alert [x] Routine visit [] Staff referral [] Actively dying [] Patient sleeping [] Family support [] [] Out of room [] Palliative care [] [x] Receiving care in room [] Pre-surgical visit [] Trauma [x] Long length of stay [] ICU visit [] Other: Relational/Emotional Strength [x] Patient feels connected with others/family/visitors/staff [] Distress [] Loneliness/isolation [] Abandonment Spirituality of Patient [x] Person of Awilda [] Attends Moravian of their Awilda [x] Believes in Prayer [] Reads Bible or Holiness materials [] There are Spiritual issues to be addressed Veneer Jointer Helper Interventions [x] Prayer [x] Active listening [x] Non-anxious presence [x] Spiritual/emotional support [] Crisis/trauma care [x] Spiritual counseling [] Bereavement support [] Provided bereavement packet [] Provided Bible/devotional materials [] Provided toy/stuffed animal, coloring book to patient or family member [] Provided Communion [] Anointing/[place] [] Salvation [x] Completed spiritual assessment [] Other: Impact on Illness or Injury [] Angry [] Fearful [x] Anxious [] Often cries [] Exhaustion [x] Unable to work [] Unable to attend religious [] Unable to walk/stand [] Unable to read [] Unable to drive [] Unable to eat/drink [] Unable to sleep [] Unable to be with family [] Patient intubated [] Other: Summary she has heart problems doctor is unable to any proceduers at this time, checkingt meds, has a good attitude wants to go home to family at some [place] Time spent with patient 10 mins
[2020-11-22 12:59] LABS: Partial Thromboplastin Time 45.2 SECONDS (23.9-36.7)
--- NOTE | 2020-11-22 13:57 | P.PN_ITS ---
Subjective Subjective: Interval history: Denies any complaint. Appear to be stable Vitals/I&O/Wt Last Vital Signs Temp 98.0 F 11/22/20 12:00 Pulse 68 11/22/20 12:00 Resp 18 11/22/20 12:00 BP 151/49 11/22/20 12:00 Pulse Ox 96 11/22/20 12:00 11/21/20 11/22/20 11/22/20 22:59 06:59 14:59 Intake Total 1131.6 / 1557.473 278.95 / 9619.821 6748 / 1240 Output Total 200 / 200 225 / 225 Balance 931.6 / 1357.473 278.95 / 8306.373 6361 / 1015 Weight last 48 hrs Weight 190 lb Physical Exam Narrative: EXAM NARRATIVE: GENERAL: Patient is alert, awake and oriented x3. HEENT: No cyanosis. No icterus. No pallor. HEART: Regular S1 and S2. No murmur, rub or gallop. LUNGS: Clear to auscultate bilaterally. CENTRAL NERVOUS SYSTEM: Grossly nonfocal. EXTREMITIES: Lower extremities ychsp-zcq-zbzr amputation no edema Data : 11/22/20 03:46 11/22/20 09:00 A&P Assessment and plan (1) Non-ST elevation RI (NSTEMI): Will admit patient to CSU. Continue aspirin statin beta-otilia add nitroglycerin long-acting in the form of isosorbide mononitrate continue ticagrelor. I will obtain echocardiogram to assess LV function and wall motion abnormality. Patient appeared to be stable doing fine from cardiovascular perspective continue to be managed medically. Continue to optimize medicine Status: Acute (2) Hypertension: Will optimize medicine to control blood pressure Status: Acute Qualifiers: Hypertension type: essential hypertension Qualified Code(s): I10 - Essential (primary) hypertension (3) Diabetes mellitus: Continue moderate sliding scale insulin Status: Acute Qualifiers: Diabetes mellitus complication detail: with other circulatory complications Diabetes mellitus complication status: with circulatory complication Diabetes mellitus long chain dyeing machine operator insulin use: with long chain dyeing machine operator use Diabetes mellitus type: other specified (including SALAZAR) Qualified Code(s): 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; Z79.4 - long-term (current) use of insulin (4) Chronic kidney disease: Continue IV fluid creatinine has improved Status: Acute Qualifiers: Chronic kidney disease stage: stage 3 (moderate) Chronic kidney disease stage 3 subtype: stage 3b (GFR 30-44) Qualified Code(s): N18.32 - Chronic kidney disease, stage 3b Attestations Medical Necessity Statement*: Patient require continuation hospitalization for above defined care Coding Level of Care Code Acute Computerized Table Cutter for [facility] Fwd Diagnoses Non-ST elevation RI (NSTEMI) I21.4 Hypertension I10 Hypertension type: essential hypertension Diabetes mellitus E13.59; Z79.4 Diabetes mellitus complication detail: with other circulatory complications Diabetes mellitus complication status: with circulatory complication Diabetes mellitus long chain dyeing machine operator insulin use: with long chain dyeing machine operator use Diabetes mellitus type: other specified (including SALAZAR) Chronic kidney disease N18.32 Chronic kidney disease stage: stage 3 (moderate) Chronic kidney disease stage 3 subtype: stage 3b (GFR 30-44)
[2020-11-22 17:13] LABS: Glucose Point of Care 225 mg/dL (70-110)
[2020-11-22] MEDS: nitroglycerin 0.4 mg sublingual Tablet SUBLINGUAL ×4 (18:00→19:35)
[2020-11-22 18:09] LABS: Partial Thromboplastin Time 62.3 SECONDS (23.9-36.7)
--- NOTE | 2020-11-22 19:19 | ECG_ITS ---
[facility] Test Date: 2020-11-22 Pat Name: Beryl Tanner Department: Room: 108 Gender: Female Clinical Account Manager: : 1940 Requested By: Michael Stephen Order Number: [id number] Reading MD: MICHAEL STEPHEN Measurements Intervals Mina Rate: 99 P: -54 CA: 100 QRS: -60 QRSD: 144 T: 94 QT: 395 QTc: 508 Interpretive Statements SINUS RHYTHM WITH SHORT CA INTERVAL MARKED LEFT AXIS DEVIATION [QRS AXIS < -30] LEFT BUNDLE BRANCH BLOCK [120+ ms QRS DURATION, 80+ ms Q/S IN V1/V2, 85+ ms R IN I/aVL/V5/V6] Compared to ECG 11/21/2020 03:13:20 Short CA interval now present First degree AV block no longer present Electronically Signed On 11-24-2020 20:33:32 CDT by MICHAEL STEPHEN [email or web address]
[2020-11-22] MEDS: morphine 4 mg/mL SDV 1 mL 2 MG IVP (19:30)
[2020-11-22] MEDS: amlodipine 5 mg Tablet PO (19:33)
--- NOTE | 2020-11-22 19:45 | PC.NURSE ---
at 1800,pt c/o chest pain.left substernal area.rated pain as 7/10. sharp denied radiation.no diaphoresis.pt did c/o sob.bp 169/70.hr 84,o2 sat 98% on room air.resp 30.no changes on rhythm strip noted.one tramadol and 1 ntg given sl as ordered.at 1805..bp 177/50.pain remained at 7/10.2nd sl ntg given.bp decreased to 114/52..and chest pain resolved
--- NOTE | 2020-11-22 19:56 | PC.NURSE ---
Patient c/o chest pain. Dr Stephen in to see patient. Gave verbal order to give Ativan 1mg ivp at bedtime one time this evening and Nitrobid 0.5in q6hr PRN for breakthrough chest pain.
[2020-11-22 20:16] LABS: Glucose Point of Care 316 mg/dL (70-110)
[2020-11-22] MEDS: sodium chloride 0.9% 1,000 ML 75 ML IV (20:17)
[2020-11-22] MEDS: acetaminophen 325 mg Tablet 650 MG PO (20:53)
[2020-11-22] MEDS: LORazepam 2 mg/mL INJ 1 mL 1 MG IVP (21:00)
--- NOTE | 2020-11-22 21:05 | PC.NURSE ---
Patient was tearful due to daughters Citlaly and Teresa fighting. One time Ativan given per order. Patient verbalized understanding. Daughter Citlaly states to patient, We need to ban Teresa from coming back to see you. Patient replies back to her, I'm just going to tell her that if she comes to visit me, she's going to have to stop her crap. Patient requests that Citlaly be the person that Dr. Stephen calls to give updates. Patient says that if Teresa calls, it is still okay to give information to her. Yolanda Boucher says that she is her DPOA and that she will bring the paperwork tomorrow. Around 1921, patient c/o chest pain. Blood pressure 167/87. EKG taken. 2 PRN Nitro given and one dose of PRN Morphine given. This brought patient's pain from 10/10 to 5/10. Patient was also given scheduled Amlodipine. Blood pressure 130/62. Family/visitors are all currently gone. At this current time, patient is not complaining of any pain, VSS, and patient does not appear to be anxious and tearful as she was earlier.
--- NOTE | 2020-11-22 22:10 | PC.NURSE ---
Daughter Teresa called and stated to nurse She told me it's all my fault. I don't know what to do. Should I just not come back? Nurse stated, that's not a decision I can make for you. That is something you and her need to talk about.
--- NOTE | 2020-11-22 23:33 | PC.NURSE ---
Patient was resting quietly with eyes closed. Woke patient to check vital signs. Patient states she is not having any pain.
[2020-11-23] VITALS (14 sets, daily range): BP systolic 107–169; BP diastolic 43–91; PULSE 66–100; RESP 14–25; TEMP 36.9–37.1; O2SAT 94–97
--- NOTE | 2020-11-23 00:43 | PC.NURSE ---
Patient is currently resting with eyes closed. Will monitor.
--- NOTE | 2020-11-23 01:28 | PC.NURSE ---
Lab notified of 0100 PTT that was ordered, but has not been drawn yet.
--- NOTE | 2020-11-23 02:47 | PC.NURSE ---
PTT is currently pending.
[2020-11-23 02:57] LABS: Anion Gap 13.3 (5-19); Blood Urea Nitrogen 25 mg/dL (8-23); Calcium 7.7 mg/dL (8.5-10.5); Carbon Dioxide 21 mmol/L (22-29); Chloride 109 mmol/L (98-107); Glucose 160 mg/dL (65-115); Osmolality Calculated 296 mOsm/kg (285-295); Partial Thromboplastin Time 69.7 SECONDS (23.9-36.7); Potassium 4.3 mmol/L (3.5-5.1); Sodium 139 mmol/L (136-145)
[2020-11-23 06:56] LABS: Glucose Point of Care 165 mg/dL (70-110)
[2020-11-23] MEDS: aspirin 81 mg EC Tablet PO (08:49)
[2020-11-23] MEDS: isosorbide mononitrate 20 mg Tablet PO ×2 (08:49→18:03)
[2020-11-23] MEDS: ticagrelor 90 mg Tablet PO ×2 (08:49→18:03)
[2020-11-23] MEDS: pantoprazole DR 40 mg Tablet PO (08:49)
[2020-11-23] MEDS: atorvastatin 40 mg Tablet PO (08:49)
[2020-11-23 11:09] LABS: Glucose Point of Care 237 mg/dL (70-110)
[2020-11-23] MEDS: enoxaparin 100 mg/mL Syringe 90 MG SUBCUT (12:18)
[2020-11-23] MEDS: sodium chloride 0.9% 1,000 ML 75 ML IV (13:21)
[2020-11-23 16:45] LABS: Glucose Point of Care 161 mg/dL (70-110)
--- NOTE | 2020-11-23 18:53 | P.PN_ITS ---
Subjective Subjective: Interval history: Yesterday patient had episode of chest pain mild visiting with the family. It was resolved later. I had detailed discussion with the patient and her daughter and the son over the phone. We all were in agreement that due to her underlying chronic kidney disease patient can be managed medically unless she has recurrent chest pain arrhythmia or any signs or symptoms of instability. Patient and family also would like to be treated medically as she does not want to stop the risk for contrast-induced nephropathy leading to transient or permanent dialysis. Medications: Reviewed: Yes Vitals/I&O/Wt Last Vital Signs Temp 98.8 F 11/23/20 16:24 Pulse 80 11/23/20 16:24 Resp 18 11/23/20 16:24 BP 152/58 11/23/20 16:24 Pulse Ox 95 11/23/20 16:24 11/23/20 11/23/20 11/23/20 06:59 14:59 22:59 Intake Total 300 / 2521.250 1549.167 / 1549.167 Balance 300 / 0325.718 5038.167 / 1549.167 Physical Exam Narrative: EXAM NARRATIVE: GENERAL: Patient is alert, awake and oriented x3. HEENT: No cyanosis. No icterus. No pallor. HEART: Regular S1 and S2. No murmur, rub or gallop. LUNGS: Clear to auscultate bilaterally. CENTRAL NERVOUS SYSTEM: Grossly nonfocal. EXTREMITIES: Lower extremities edlhv-zna-gxez amputation no edema Data : 11/22/20 03:46 11/23/20 01:46 Micro: Microbiology 11/21/20 04:45 Urine Culture - Final Urine,Clean Catch A&P Assessment and plan (1) Non-ST elevation MS (NSTEMI): Will admit patient to CSU. Continue aspirin statin beta-otilia add nitroglycerin long-acting in the form of isosorbide mononitrate continue ticagrelor. I will obtain echocardiogram to assess LV function and wall motion abnormality. Patient appeared to be stable doing fine from cardiovascular perspective continue to be managed medically. Continue to optimize medicine Today patient denies any chest pain she is feeling much better. Continue to optimize medicine. Status: Acute (2) Hypertension: I will continue to optimize medicine to improve the blood pressure Status: Acute Qualifiers: Hypertension type: essential hypertension Qualified Code(s): I10 - Essential (primary) hypertension (3) Diabetes mellitus: Continue moderate sliding scale insulin Status: Acute Qualifiers: Diabetes mellitus type: other specified (including SALAZAR) Diabetes mellitus alf insulin use: with buttermaker use Diabetes mellitus complication status: with circulatory complication Diabetes mellitus compl ication detail: with other circulatory complications Qualified Code(s): 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; Z79.4 - buttermaker (current) use of insulin (4) Chronic kidney disease: Continue IV fluid Status: Acute Qualifiers: Chronic kidney disease stage: stage 3 (moderate) Chronic kidney disease stage 3 subtype: stage 3b (GFR 30-44) Qualified Code(s): N18.32 - Chronic kidney disease, stage 3b Attestations Medical Necessity Statement*: Patient require continuation hospitalization for above defined care Coding Level of Care Code Established Pt Acute [place] [facility] Patient Type Established History Detailed Exam Detailed Medical Decision Making Moderate Complexity Diagnoses Non-ST elevation MS (NSTEMI) I21.4 Hypertension I10 Hypertension type: essential hypertension Diabetes mellitus E13.59; Z79.4 Diabetes mellitus type: other specified (including SALAZAR) Diabetes mellitus buttermaker insulin use: with buttermaker use Diabetes mellitus complication status: with circulatory complication Diabetes mellitus complication detail: with other circulatory complications Chronic kidney disease N18.32 Chronic kidney disease stage: stage 3 (moderate) Chronic kidney disease stage 3 subtype: stage 3b (GFR 30-44)
[2020-11-23] MEDS: HYDROcodone-acetaminophen 5-325 mg Tablet 1 TAB PO (19:23)
[2020-11-23] MEDS: nitroglycerin 1 gm/inch oint Pkt 0.5 INCH TOPICAL (19:23)
[2020-11-23 19:32] LABS: Glucose Point of Care 216 mg/dL (70-110)
--- NOTE | 2020-11-23 19:42 | PC.NURSE ---
Dr. Stephen notified of patient c/o of chest pain and patient having wheezing lung sounds. Nitropaste placed on patient. Patient received Ativan x1 last night, which patient stated helped her. Ordered 0.25 mg Xanax q6h PRN for anxiety.
[2020-11-23] MEDS: sodium chloride 0.9% 1,000 ML 100 ML IV (19:44)
[2020-11-23] MEDS: ALPRAZolam 0.5 mg Tablet 0.25 MG PO (19:59)
[2020-11-23] MEDS: morphine 4 mg/mL SDV 1 mL 2 MG IVP (19:59)
--- NOTE | 2020-11-23 20:56 | PC.NURSE ---
Daughter Citlaly states my mom doesn't want any information given to my sister Teresa. When going in room to ask patient if she is okay with information being given to Teresa, the patient states that she is okay with her being given information.
--- NOTE | 2020-11-23 21:09 | PC.NURSE ---
Patient now states, I changed my mind, I don't want you guys going into detail with Teresa when she asks for information. Just have her talk to me.
[2020-11-23] MEDS: nitroglycerin 0.4 mg sublingual Tablet SUBLINGUAL ×2 (21:21→21:26)
--- NOTE | 2020-11-23 21:34 | PC.NURSE ---
Dr. Stephen in room to see patient. Ordered to stop fluids, give 80 of Lasix, Miralax, and Colace.
--- NOTE | 2020-11-23 21:41 | PC.NURSE ---
Daughter Teresa called asking if she could come see patient. She was educated that our visiting hours end at 8 PM. She showed up at front entrance asking to come in to see her mom. Patient appeared to be very anxious while daughters were visiting her yesterday. Daughter has been educated not to come in past visiting hours. Dr. Stephen notified and [facility] notified as well and agreeable. Daughter Teresa and daughter Citlaly have both called nurse's station numerous times asking me to check on patient, letting me know the patient is having chest pain, ect.
[2020-11-23] MEDS: polyethylene glycol 3350 Pkt 17 gm PO (22:02)
[2020-11-23] MEDS: docusate sodium 100 mg Capsule PO (22:02)
[2020-11-23] MEDS: FUROsemide 10 mg/mL SDV 4mL 80 MG IVP (22:02)
--- NOTE | 2020-11-23 23:17 | PC.NURSE ---
Patient had an incontinent episode of urine. Unable to measure output. Patient rates chest pain at 1/10 currently.
[2020-11-24] VITALS (8 sets, daily range): BP systolic 105–145; BP diastolic 41–64; PULSE 69–86; RESP 16–24; TEMP 36.8–37.4; O2SAT 94–100
--- NOTE | 2020-11-24 01:03 | PC.NURSE ---
Patient is currently resting with eyes closed. Patient does not appear to be in any distress at this time. Will monitor.
--- NOTE | 2020-11-24 03:22 | PC.NURSE ---
Patient does not c/o pain or SOB.
[2020-11-24 05:57] LABS: Blood Urea Nitrogen 23 mg/dL (8-23); Calcium 8.2 mg/dL (8.5-10.5); Carbon Dioxide 21 mmol/L (22-29); Chloride 109 mmol/L (98-107); Glucose 181 mg/dL (65-115); Osmolality Calculated 298 mOsm/kg (285-295); Sodium 140 mmol/L (136-145)
--- NOTE | 2020-11-24 06:54 | PC.NURSE ---
Patient assisted to wheelchair with 2 assist. Complete linen change provided due to incontinent of urine episode.
[2020-11-24 07:04] LABS: Glucose Point of Care 203 mg/dL (70-110)
[2020-11-24] MEDS: ALPRAZolam 0.5 mg Tablet 0.25 MG PO ×2 (07:58→20:28)
[2020-11-24] MEDS: pantoprazole DR 40 mg Tablet PO (09:20)
[2020-11-24] MEDS: isosorbide mononitrate 20 mg Tablet PO ×2 (09:20→17:33)
[2020-11-24] MEDS: atorvastatin 40 mg Tablet PO (09:20)
[2020-11-24] MEDS: amlodipine 10 mg Tablet PO (09:20)
[2020-11-24] MEDS: ticagrelor 90 mg Tablet PO ×2 (09:20→17:33)
[2020-11-24] MEDS: aspirin 81 mg EC Tablet PO (09:20)
--- NOTE | 2020-11-24 10:10 | PC.SOCIAL ---
IM Follow up completed and pt verbalized understanding. No further questions. Copy provided
[2020-11-24 11:13] LABS: Glucose Point of Care 197 mg/dL (70-110)
--- NOTE | 2020-11-24 11:35 | PM.PN ---
Subjective Subjective: Interval history: Feeling much better after diuresis. She has not had stool yet. Overall denies chest pain. Appear to be stable vital matson. Medications: Reviewed: Yes Vitals/I&O/Wt Last Vital Signs Temp 98.3 F 11/24/20 11:24 Pulse 85 11/24/20 11:24 Resp 24 H 11/24/20 11:24 BP 107/64 11/24/20 11:24 Pulse Ox 95 11/24/20 11:24 11/23/20 11/24/20 11/24/20 22:59 06:59 14:59 Intake Total 889.167 / 2438.334 250 / 2688.334 120 / 120 Output Total 400 / 400 1950 / 2350 500 / 500 Balance 489.167 / 2038.334 -1700 / 338.334 -380 / -380 Physical Exam Narrative: EXAM NARRATIVE: GENERAL: Patient is alert, awake and oriented x3. HEENT: No cyanosis. No icterus. No pallor. HEART: Regular S1 and S2. No murmur, rub or gallop. LUNGS: Decreased breath sound bilaterally. Abdomen: Distended but now I can hear sluggish sound nontender CENTRAL NERVOUS SYSTEM: Grossly nonfocal. EXTREMITIES: Lower extremities [id number] amputation no edema Data : 11/22/20 03:46 11/24/20 04:50 Micro: Microbiology 11/21/20 04:45 Urine Culture - Final Urine,Clean Catch A&P Assessment and plan (1) Non-ST elevation GA (NSTEMI): Will admit patient to [facility]. Continue aspirin statin beta-otilia add nitroglycerin long-acting in the form of isosorbide mononitrate continue ticagrelor. I will obtain echocardiogram to assess LV function and wall motion abnormality. Patient appeared to be stable doing fine from cardiovascular perspective continue to be managed medically. Continue to optimize medicine Today patient denies any chest pain she is feeling much better. Continue to optimize medicine. Patient is stable doing fine from a cardiac perspective Status: Acute (2) Hypertension: Stable. 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; Z79.4 - long-term (current) use of insulin (4) Chronic kidney disease: IV fluid was discontinued we will diurese since patient is volume overloaded Status: Acute Qualifiers: Chronic kidney disease stage: stage 3 (moderate) Chronic kidney disease stage 3 subtype: stage 3b (GFR 30-44) Qualified Code(s): N18.32 - Chronic kidney disease, stage 3b (5) CHF (congestive heart failure): Patient appeared to be in decompensated heart failure systolic type will diurese with Lasix 80 mg IV now Status: Acute (6) Constipation by delayed colonic transit: Continue MiraLAX Colace add prune juice Status: Acute Attestations Medical Necessity Statement*: Patient require continuation hospitalization for above defined care. Coding Level of Care Code Established Pt Acute Dry Talc Racker for Chg Fwd Patient Type Established History Comprehensive Exam Comprehensive Medical Decision Making Moderate Complexity Diagnoses Non-ST elevation GA (NSTEMI) I21.4 Hypertension I10 Hypertension type: essential hypertension Diabetes mellitus E13.59; Z79.4 Diabetes mellitus type: other specified (including SALAZAR) Diabetes mellitus rodent exterminator insulin use: with correction use Diabetes mellitus complication status: with circulatory complication Diabetes mellitus complication detail: with other circulatory complications Chronic kidney disease N18.32 Chronic kidney disease stage: stage 3 (moderate) Chronic kidney disease stage 3 subtype: stage 3b (GFR 30-44) CHF (congestive heart failure) I50.9 Constipation by delayed colonic transit K59.01
[2020-11-24] MEDS: enoxaparin 100 mg/mL Syringe 90 MG SUBCUT (12:34)
[2020-11-24] MEDS: FUROsemide 10 mg/mL SDV 10mL 60 MG IVP (12:37)
[2020-11-24 17:20] LABS: Glucose Point of Care 351 mg/dL (70-110)
[2020-11-24] MEDS: docusate sodium 100 mg Capsule PO (17:33)
[2020-11-24 20:10] LABS: Glucose Point of Care 308 mg/dL (70-110)
[2020-11-24] MEDS: HYDROcodone-acetaminophen 5-325 mg Tablet 1 TAB PO (20:28)
[2020-11-24] MEDS: polyethylene glycol 3350 Pkt 17 gm PO (20:39)
--- NOTE | 2020-11-24 23:29 | PC.NURSE ---
Around 2229: Patient c/o constipation. Notified Dr. Dalton, Hospitalist. Orders received, see JUN.
[2020-11-25] VITALS (10 sets, daily range): BP systolic 108–145; BP diastolic 20–60; PULSE 73–88; RESP 18–26; TEMP 36.6–37.1; O2SAT 98–100
[2020-11-25] MEDS: bisacodyl 10 mg Supp PR (00:08)
[2020-11-25] MEDS: FUROsemide 10 mg/mL SDV 10mL 60 MG IVP ×2 (00:14→18:29)
[2020-11-25] MEDS: pantoprazole DR 40 mg Tablet PO (10:48)
[2020-11-25] MEDS: amlodipine 5 mg Tablet PO (10:48)
[2020-11-25] MEDS: isosorbide mononitrate 20 mg Tablet PO ×2 (10:48→18:30)
[2020-11-25] MEDS: ticagrelor 90 mg Tablet PO ×2 (10:49→18:31)
[2020-11-25] MEDS: aspirin 81 mg EC Tablet PO (10:49)
[2020-11-25] MEDS: atorvastatin 40 mg Tablet PO (10:49)
[2020-11-25] MEDS: enoxaparin 100 mg/mL Syringe 90 MG SUBCUT (10:49)
[2020-11-25] MEDS: docusate sodium 100 mg Capsule PO ×2 (10:50→18:30)
--- NOTE | 2020-11-25 16:50 | P.PN_ITS ---
Subjective Subjective: Interval history: Denies chest pain feeling better continues to diurese, patient had stool this morning. Medications: Reviewed: Yes Vitals/I&O/Wt Last Vital Signs Temp 98.1 F 11/25/20 15:44 Pulse 78 11/25/20 15:44 Resp 18 11/25/20 15:44 BP 108/60 11/25/20 15:44 Pulse Ox 99 11/25/20 15:44 11/25/20 11/25/20 11/25/20 06:59 14:59 22:59 Intake Total 250 / 760 480 / 480 Output Total 600 / 2330 1000 / 1000 Balance -350 / -1570 -520 / -520 Physical Exam Narrative: EXAM NARRATIVE: GENERAL: Patient is alert, awake and oriented x3. HEENT: No cyanosis. No icterus. No pallor. HEART: Regular S1 and S2. No murmur, rub or gallop. LUNGS: Decreased breath sound bilaterally. Abdomen: Distended but now I can hear sluggish sound nontender CENTRAL NERVOUS SYSTEM: Grossly nonfocal. EXTREMITIES: Lower extremities kjtag-yff-lada amputation no edema Data : 11/22/20 03:46 11/24/20 04:50 A&P Assessment and plan (1) Non-ST elevation VA (NSTEMI): Appear to be stable from a coronary disease perspective continue current regimen Status: Acute (2) Hypertension: Well-controlled now. 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 Patient has baseline chronic kidney disease currently at the baseline Status: Acute Qualifiers: Chronic kidney disease stage: stage 3 (moderate) Chronic kidney disease stage 3 subtype: stage 3b (GFR 30-44) Qualified Code(s): N18.32 - Chronic kidney disease, stage 3b (5) CHF (congestive heart failure): Continue to diurese, continue IV diuretic, started improving CHF Status: Acute (6) Constipation by delayed colonic transit: Patient had good stool, continue MiraLAX Colace add prune juice Status: Acute Attestations Medical Necessity Statement*: Require congestion hospitalization for above and can most likely discharge tomorrow if remains stable Coding Level of Care Code Established Pt Acute Block Handler for Chg Fwd Patient Type Established History Detailed Exam Detailed Medical Decision Making Moderate Complexity Diagnoses Non-ST elevation VA (NSTEMI) I21.4 Hypertension I10 Hypertension type: essential hypertension Diabetes mellitus E13.59; Z79.4 Diabetes mellitus type: other specified (including SALAZAR) Diabetes mellitus middle or intermediate school principal insulin use: with [facility] use Diabetes mellitus complication status: with circulatory complication Diabetes mellitus complication detail: with other circulatory complications Chronic kidney disease N18.32 Chronic kidney disease stage: stage 3 (moderate) Chronic kidney disease stage 3 subtype: stage 3b (GFR 30-44) CHF (congestive heart failure) I50.9 Constipation by delayed colonic transit K59.01
[2020-11-25 18:24] LABS: Glucose Point of Care 306 mg/dL (70-110)
[2020-11-25] MEDS: polyethylene glycol 3350 Pkt 17 gm PO (21:37)
[2020-11-25 21:51] LABS: Glucose Point of Care 374 mg/dL (70-110)
[2020-11-25] MEDS: HYDROcodone-acetaminophen 5-325 mg Tablet 1 TAB PO (23:12)
[2020-11-26] VITALS: BP 118/58; PULSE 85; RESP 24; TEMP 36.6; O2SAT 96
[2020-11-26] MEDS: FUROsemide 10 mg/mL SDV 10mL 60 MG IVP (01:11)
[2020-11-26 03:00] VITALS: BP 113/48; PULSE 83; RESP 24; TEMP 36.6; O2SAT 95
[2020-11-26 05:26] VITALS: PULSE 80
[2020-11-26 06:53] LABS: Glucose Point of Care 178 mg/dL (70-110)
[2020-11-26 08:00] VITALS: BP 136/65; PULSE 84; RESP 14; TEMP 37.1; O2SAT 95
[2020-11-26] MEDS: atorvastatin 40 mg Tablet PO (08:29)
[2020-11-26] MEDS: amlodipine 5 mg Tablet PO (08:29)
[2020-11-26] MEDS: ticagrelor 90 mg Tablet PO (08:29)
[2020-11-26] MEDS: aspirin 81 mg EC Tablet PO (08:29)
[2020-11-26] MEDS: isosorbide mononitrate 20 mg Tablet PO (08:29)
[2020-11-26] MEDS: pantoprazole DR 40 mg Tablet PO (08:29)
[2020-11-26] MEDS: docusate sodium 100 mg Capsule PO (08:29)
--- NOTE | 2020-11-26 10:26 | PC.SOCIAL ---
IMM UPDATE Gave patient IMM update. Provided her copy of pg 2 of IMM. Verbalized understanding. 11/26/20 @ 0938. Initialed, dated, timed and placed in chart.
--- NOTE | 2020-11-26 10:35 | PM.DCS ---
Discharge Providers Date of Admission: 11/21/20 04:42 Date of Discharge: November 26, 2020 Attending Provider at Admission: Lorrie Dalton MD Attending Provider at Discharge: Michael Stephen MD Primary Care Provider: Karl Sweet Diagnoses at Discharge Discharge Diagnosis (1) Non-ST elevation NV (NSTEMI): Status: Acute (2) Hypertension: Status: Acute Qualifiers: Hypertension type: essential hypertension Qualified Code(s): I10 - Essential (primary) hypertension (3) Diabetes mellitus: Status: Acute Qualifiers: Diabetes mellitus complication detail: with other circulatory complications Diabetes mellitus complication status: with circulatory complication Diabetes mellitus superintendent marine oil terminal insulin use: with intermediate use Diabetes mellitus type: other specified (including SALAZAR) Qualified Code(s): 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; Z79.4 - halfway (current) use of insulin (4) Chronic kidney disease: Status: Acute Qualifiers: Chronic kidney disease stage: stage 3 (moderate) Chronic kidney disease stage 3 subtype: stage 3b (GFR 30-44) Qualified Code(s): N18.32 - Chronic kidney disease, stage 3b (5) CHF (congestive heart failure): Status: Acute (6) Constipation by delayed colonic transit: Status: Acute Reason for Visit Reason for Visit: CHEST PAIN Hospital Course Hospital Course Beryl Tanner is a 79 year old female past medical history significant for coronary artery disease status post CABG in 2004 followed by multiple stents no record available to me, history of bilateral tpwvc-[id number]-zzbt amputation, chronic kidney disease baseline creatinine around 1.6, uncontrolled diabetes mellitus presented with non-ST elevation NV. Due to worsening of renal function and comorbidities it was thought to be treated medically. 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 Over the. Of next few days patient was diuresed and medicine were optimized she was also noted to be constipated which was relieved with the medicine. For the last 24 hours patient started doing much better denies any chest pain he is euvolemic her medicines were rearranged and optimized she is being discharged home. Patient and the family is in agreement to be treated medically as she is high risk for contrast-induced nephropathy for transient or permanent renal failure leading to dialysis. She would not like to go there. Physical Exam Narrative: EXAM NARRATIVE: GENERAL: Patient is alert, awake and oriented x3. HEENT: No cyanosis. No icterus. No pallor. HEART: Regular S1 and S2. No murmur, rub or gallop. LUNGS: Decreased breath sound bilaterally. Abdomen: Distended but now I can hear sluggish sound nontender CENTRAL NERVOUS SYSTEM: Grossly nonfocal. EXTREMITIES: Lower extremities bqrpz-lvu-[id number] amputation no edema Discharge Data Data Completed and Pending: Completed Studies During Hospitalization Category Date Time Status XR chest 1V charla ble [id number] Stat Exams 11/20/20 19:44 Completed CV. echo complete * [id number] Routine Ultrasound 11/21/20 04:42 Completed Labs from last 24 hours 11/26/20 11/25/20 11/25/20 06:49 20:39 18:19 POC Glucose 178 H 374 H 306 H Vitals: Last Vital Signs Temp 98.7 F 11/26/20 08:00 Pulse 84 11/26/20 08:00 Resp 14 11/26/20 08:00 BP 136/65 11/26/20 08:00 Pulse Ox 95 11/26/20 08:00 Discharge Plan Discharge Patient Disposition: Home Condition: Stable Prescriptions: New Brilinta 90 mg Tablet 90 mg PO BID Qty: 60 RF: 3 aspirin 81 mg Tablet,Delayed Release (Dr/Ec) 81 mg PO DAILY Qty: 90 RF: 3 Continued hydrocodone-acetaminophen 10-325 mg tablet 1 tab PO Q6H PRN (Reason: Pain) RF: 0 tramadol 50 mg tablet 50 mg PO Q6H PRN (Reason: Pain) RF: 0 FeroSul 325 mg (65 mg iron) tablet 325 mg PO BID RF: 0 nitroglycerin 0.4 mg tablet, sublingual 0.4 mg sublingual Q5M MDD 3 PRN (Reason: Chest Pain) RF: 0 omeprazole 20 mg capsule,delayed release(DR/EC) 20 mg PO DAILY RF: 0 rosuvastatin 20 mg tablet 20 mg PO BEDTIME RF: 0 Lantus Solostar U-100 Insulin 100 unit/mL (3 mL) insulin pen 30 unit SUBCUT DAILY RF: 0 Brilinta 90 mg tablet 90 mg PO Q12H RF: 0 furosemide 40 mg tablet 40 mg PO BID Qty: 60 RF: 3 potassium chloride 20 mEq tablet,ER particles/crystals 20 meq PO BID Qty: 60 RF: 3 Discharge Orders: Discharge Order (Routine); Ordered 11/26/20 Ordered By: Michael Stephen Referrals: Michael Stephen MD [Physician] - 1 month (Please follow-up with Dr. Stephen on Jan.30 at 10:15A.M. This appointment will will at [facility] in [facility]. You will go in through the E.R[facility] entrance and to the right. If you have any questions or need to reshedule. Please call ) Arabella Ray FNP [Nurse Practitioner] - 7-10 days (Please follow-up Arabella Ray on Dec.03 at 1:15P.M. Directly after your appointment with Arabella Ray you will follow-up with Dr. Stephen. If you have any questions or need to reschedule. Please call ) Karl Sweet DO [Primary Care Provider] - 11/29/20 2:00 pm (You have a hospital followup with Dr. Sweet at his office on November 29 at 2:00pm) Discharge Diet: Cardiac and Diabetic Discharge Activity: Increase activity as tolerated Patient Instructions: Ticagrelor (By mouth), CHF Stoplight, Chest Pain Stoplight Activity Restrictions/Additional Instructions: Follow-up with Ms. Arabella Ray cardiology nurse practitioner in the afternoon where she can also see Dr. Stephen with her in 7 to 10 days. Follow-up with Dr. Stephen in 6 to 8 weeks. Please keep log of blood pressure pulse daily weight. Please take extra furosemide if you gain more than 3 pound in 2 consecutive days. Discharge Attestations Time Spent in Discharge Care*: less than 30 min Specific Discharge Activities: educating patient Quality Metrics Clinical Quality Measures During this hospital stay, did patient experience: AMI Clinical Trial Participant: No Contraindication to aspirin (AMI): Aspirin given Contraindication to statin: Statin prescribed Contraindication to PCI: Patient requests alternative treatment Coding Level of Care Code Acute [facility] note Diagnoses Non-ST elevation NV (NSTEMI) I21.4 Hypertension I10 Hypertension type: essential hypertension Diabetes mellitus E13.59; Z79.4 Diabetes mellitus complication detail: with other circulatory complications Diabetes mellitus complication status: with circulatory complication Diabetes mellitus superintendent marine oil terminal insulin use: with intermediate use Diabetes mellitus type: other specified (including SALAZAR) Chronic kidney disease N18.32 Chronic kidney disease stage: stage 3 (moderate) Chronic kidney disease stage 3 subtype: stage 3b (GFR 30-44) CHF (congestive heart failure) I50.9 Constipation by delayed colonic transit K59.01
[2020-11-26 11:41] LABS: Glucose Point of Care 357 mg/dL (70-110)
[2020-11-26 12:00] VITALS: BP 154/52; RESP 16; O2SAT 96
[2020-11-26 13:53] VITALS: BP 132/66; PULSE 84; RESP 14; TEMP 36.6; O2SAT 95
== END 2020-11-26 14:20 | disposition home or self-care (01) | DRG 280 ==
LOC: ER 11-21 03:13 → ER IP 11-21 05:50 → CSU 11-21 17:19
PROVIDERS: Emergency Medicine; Admitting Provider Student in an Organized Health Care Education/Training Program; Emergency Provider Family Medicine; PCP Family Medicine; Visit Provider Internal Medicine Cardiovascular Disease
DX: I21.4 Non-ST elevation (NSTEMI) myocardial infarction (principal); I50.21 Acute systolic (congestive) heart failure; I12.9 Hypertensive chronic kidney disease with stage 1 through stage 4 chronic kidney disease, or unspecified chronic kidney disease; E11.22 Type 2 diabetes mellitus with diabetic chronic kidney disease; N18.32 Chronic kidney disease, stage 3b; Z79.4 Long term (current) use of insulin; I25.10 Atherosclerotic heart disease of native coronary artery without angina pectoris; K59.01 Slow transit constipation; I73.9 Peripheral vascular disease, unspecified; Z79.82 Long term (current) use of aspirin; Z95.1 Presence of aortocoronary bypass graft; Z95.5 Presence of coronary angioplasty implant and graft; Z89.612 Acquired absence of left leg above knee; Z89.611 Acquired absence of right leg above knee; Z20.822 Contact with and (suspected) exposure to COVID-19; Z90.12 Acquired absence of left breast and nipple; Z87.891 Personal history of nicotine dependence
CPT/HCPCS: 36415; 36416; 71045; 80048; 80053; 81001; 82962; 83880; 84484; 85025; 85049; 85730; 87086; 87426; 93005; 93306; 96365; 96366; 96372; 99285; J1644; J1650; J1815; J1940; J2060; J2270; J7030